=== PATIENT | male | born 1980 | race Caucasian/White ===

== ENCOUNTER → 2018-03-03 | Emergency (ER) | payer MEDICARE, OTHER ==
[~2018-03-03] VITALS: Ht 188 cm; Wt 136.4 kg
[~2018-03-03] MED LIST: TETanus/Pertussis (Acell)/Diphther VAC/PF (Tdap-Adult) 0.5ml syringe IM ONE
[2018-03-03 14:55] VITALS: BP 148/95
[2018-03-03 16:22] LABS: HIV ANTIBODY 1&2 RAPID NON-REACTIVE (Neg)
[2018-03-05 07:20] LABS: HBSAG SCREEN Negative (Negative); HEP A AB, IGM Negative (Negative); HEP B CORE AB, IGM Negative (Negative); HEPATITIS C ANTIBODY <0.1 s/co ratio (0.0-0.9)
== END | disposition home or self-care (01) ==
LOC: ER 14:30
DX: S61.200A Unspecified open wound of right index finger without damage to nail, initial encounter (principal); Z77.21 Contact with and (suspected) exposure to potentially hazardous body fluids; X58.XXXA Exposure to other specified factors, initial encounter; Y93.89 Activity, other specified; Y92.89 Other specified places as the place of occurrence of the external cause; Y99.8 Other external cause status
CPT/HCPCS: 36415; 80074; 86703; 90471; 90715; 99283